=== PATIENT | male | born 1985 | race Caucasian/White ===

== ENCOUNTER 2020-12-13 13:48 | Emergency (ER) | payer BC, SELFPAY ==
[2020-12-13 13:56] VITALS: BP 141/84; PULSE 87; RESP 16; TEMP 37; O2SAT 100
--- NOTE | 2020-12-13 14:18 | ED.HA ---
HPI - Headache General Chief Complaint: Headache Stated Complaint: headache needs work note Source: patient and RN notes reviewed Mode of arrival: ambulatory Limitations: no limitations History of Present Illness HPI Narrative: 35 year old male who presents to [facility] care with stated complaints of having migraine headache on Wednesday and Wednesday, gone yesterday, having to call off of work and he states that he needs a note to return to work. Patient states that he gets headaches/migraines usually twice a year with weather changes. Patient states that he has no headache pain at this time, denies any other ill symptoms, no nausea, neuro deficit, or any photophobia. Patient states that he took Ibuprofen and stayed in quiet dark environment and headache finally resolved yesterday. 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 MD elicited complaint: headache Pertinent past history: migraines Onset description: gradually Location: temporal and other (to back of head) Quality & Timing: throbbing, steady and similar to previous headaches Exacerbating factors: exertion, movement of head/neck, light and noise Relieving factors: NSAIDs, dark room and other (rest) Associated symptoms: photophobia, sensitivity to sound and other (temporal pain radiating to back of head) Treatments prior to arrival: ibuprofen (patient is symptom free at this time) Related Data Home Medications Medication Instructions Recorded Confirmed No Home Medications 12/13/20 12/13/20 Allergies Allergy/AdvReac Type Severity Reaction Status Date / Time No Known Drug Allergies Allergy Unknown Unknown Verified 12/13/20 14:07 Review of Systems Review of Systems: Narrative: CONSTITUTIONAL: Denies fever, chills, or sweats. EYES: Denies visual changes, redness, or discharge,did have photophobia with headache ENT: Denies rhinorrhea, congestion, sore throat, or otalgia. CARDIOVASCULAR: Denies chest pain, palpitations, or edema. RESPIRATORY: Denies cough or dyspnea. GASTROINTESTINAL: Denies abdominal pain, nausea, vomiting, or diarrhea. GENITOURINARY: Denies dysuria or hematuria. SKIN: Denies rash or itching. MUSCULOSKELETAL: Denies back pain, joint pain, or myalgia. NEUROLOGIC: Denies headache at this time,no numbness, or weakness.Headache started Wednesday evening and finally resolved on . PSYCHIATRIC: Denies anxiety or depression. All systems reviewed & are unremarkable except as noted in HPI and below PMFSH Past Medical History Medical History (Updated 12/16/20 @ 08:58 by Liset Chandler NP) Ankle sprain Migraines, neuralgic Surgical History Surgical History (Updated 12/16/20 @ 08:53 by Liset Chandler NP) No history of previous surgery Family History Family History (Updated 12/16/20 @ 08:54 by Liset Chandler NP) Other No significant family history Social History Social History (Updated 12/16/20 @ 08:53 by Liset Chandler NP) Smoking status: Never smoker Alcohol intake: current Alcohol use details: social Substance use: never Living arrangements: with family Gender identity (if verbalized by the patient): Male Comments At time of signature, agree with nursing past medical, surgical, social and family history. There is no relevant family history pertinent to the presenting complaint Exam Narrative: Exam Narrative: GENERAL: Well-appearing, well-nourished, and in no acute distress. HEAD: Normocephalic, atraumatic. EYES: PERRLA and EOMI.no nystagmus noted ENT: Nares clear, no rhinorrhea or epistaxis. Mucous membranes moist.TM's normal with good light reflex, throat pink with no swelling or pain, no tonsil enlargement NECK: Supple.no lymphadenopathy CHEST: Clear to auscultation. No respiratory distress.SAO2 100% on room air HEART: Regular rate and rhythm. No murmur heard. Normal peripheral pulses. ABDOMEN: Soft, nontender, nondistended, normal active bowel sounds. EXTREMITIES: Normal range of motion. No edema. SKIN: Warm,
== END 2020-12-13 14:45 | disposition home or self-care (01) ==
PROVIDERS: Emergency Provider Registered Nurse; PCP Internal Medicine
DX: G43.909 Migraine, unspecified, not intractable, without status migrainosus (principal)
CPT/HCPCS: 99213; G0463

== ENCOUNTER 2023-10-13 14:16 | Emergency (ER) | payer OTHER, SELFPAY ==
[2023-10-13 14:23] VITALS: BP 146/98; PULSE 101; RESP 16; TEMP 37.1; O2SAT 97
--- NOTE | 2023-10-13 15:10 | ED.URI ---
HPI - URI/Sore Throat General Chief Complaint: Upper Respiratory Infection Stated Complaint: Cough Time Seen by Provider: 10/13/23 15:10 Source: patient, RN notes reviewed and old records reviewed Mode of arrival: ambulatory Limitations: no limitations History of Present Illness HPI Narrative: 38-year-old male who presents to [facility] with complaints dry cough which seems worse when he lays down for 1 week. He states that he has noted cough worse at night when supine and he states that he has noted a crackle when he breaths out at time. 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 Patient reports that he has taken some Mucinex for his symptoms MD elicited complaint: cough Onset (ago): week(s) (1) Consistency: progressively worsening Pain scale (0-10): 3 Description of mucous: clear and other (white ) Able to tolerate fluids by mouth: Yes Treatments prior to arrival: other (Mucinex) Related Data Allergies Allergy/AdvReac Type Severity Reaction Status Date / Time No Known Drug Allergies Allergy Unknown Unknown Verified 10/13/23 14:30 Review of Systems Review of Systems: CONSTITUTIONAL: Denies malaise, chills, sweats, or fever. EYES: Denies visual changes, redness, or discharge. ENT: Reports rhinorrhea, congestion, no sinus pain, no otalgia and no sore throat. CARDIOVASCULAR: Denies chest pain, palpitations, or edema. RESPIRATORY: Reports cough.? Denies dyspnea.worsw when supine GASTROINTESTINAL: Denies abdominal pain, nausea, vomiting, diarrhea SKIN: Denies rash or itching. MUSCULOSKELETAL:Reports myalgia. NEUROLOGIC: Denies headache. All systems reviewed & are unremarkable except as noted in HPI and below PMFSH Past Medical History Medical History (Updated 10/16/23 @ 09:49 by Liset Chandler NP) Ankle sprain History of fractured kneecap Migraines, neuralgic Surgical History Surgical History (Updated 12/16/20 @ 08:53 by Liset Chandler NP) No history of previous surgery Family History Family History (Updated 12/16/20 @ 08:54 by Liset Chandler NP) Other No significant family history Social History Social History (Updated 12/16/20 @ 08:53 by Liset Chandler NP) Smoking status: Never smoker Alcohol intake: current Alcohol use details: social Substance use: never Living arrangements: with family Gender identity (if verbalized by the patient): Male Comments At time of signature, agree with nursing past medical, surgical, social and family history. There is no relevant family history pertinent to the presenting complaint Exam Narrative: GENERAL: Well-appearing, well-nourished, and in no acute distress. HEAD: Normocephalic EYES: PERRLA, conjunctivae clear ENT: Nares clear, turbinates edematous and erythematous, clear discharge. Mucous membranes moist. TM pearly meeks with dull light reflex bilaterally; no tragal tenderness. Oropharynx erythematous without lesions. Tonsils not enlarged and without exudate, no drooling, no hoarseness, no trismus, uvula midline.post nasal discharge NECK: Supple. No lymphadenopathy CHEST: Clear to auscultation, breath sounds equal. No wheezing, rhonchi, rales, or stridor. No respiratory distress, speaks in full sentences.coughSAO2 97% on room air HEART: Regular rate and rhythm. No murmur heard. SKIN: Warm, dry, no rash. NEURO: Alert and oriented x3. PSYCH: Normal mood and affect Course Course Emergency Course: Patient is aware of diagnosis, understands and agrees to treatment plan.? Anticipatory guidance given.? Patient agrees to follow-up as directed and is aware of reasons to seek care at the emergency department. Portions of this record may have been created with voice recognition software Level of Care: Express Care Visit Vital Signs Vital signs: Vital Signs Temperature 37.1 C 10/13/23 14:23 Pulse Rate 101 H 10/13/23 14:23 Respir
== END 2023-10-13 15:38 | disposition home or self-care (01) ==
PROVIDERS: Emergency Provider Registered Nurse
DX: J06.9 Acute upper respiratory infection, unspecified (principal)
CPT/HCPCS: 99213; G0463

== ENCOUNTER 2025-09-05 16:27 | Emergency (ER) | payer OTHER, SELFPAY ==
--- NOTE | ~2025-09-05 | XR_ITS ---
XR abdomen/kub 1V 09/05/2025 16:45 INDICATION: Left flank pain TECHNIQUE: KUB COMPARISON: None FINDINGS: Bowel gas pattern is normal. There is no evidence of free air, mass, organomegaly, ascites or obstruction. Punctate right renal stone in the lower pole. Left kidney obscured by bowel content. The bones appear intact. IMPRESSION: 1: Right nephrolithiasis.. 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
[2025-09-05 16:31] VITALS: BP 151/83; PULSE 77; RESP 20; TEMP 36.8; O2SAT 100
--- NOTE | 2025-09-05 16:36 | ED.ABDPAIN ---
HPI - Abdominal Pain General Chief Complaint: Abdominal Pain Stated Complaint: left flank back to front pain Time Seen by Provider: 09/05/25 16:50 Mode of arrival: ambulatory Limitations: no limitations History of Present Illness HPI narrative: 39-year-old male presents with concern for acute onset of left flank pain that wraps around to his left abdomen. He reports the pain woke him up from sleep around 230 this afternoon. He reports it is making him feel sweaty, he feels like he cannot sit still any feels nauseated. He denies any vomiting. He denies any history of similar symptoms. He reports the pain is somewhat constant but an absence lows in severity. He reports lying down makes it worse. MD elicited complaint: flank pain Related Data Home Medications ?Medication ?Instructions ?Recorded ?Confirmed ?Last Taken ?Type Testosterone 09/05/25 Unknown History anastrozole 1 mg tablet mg 09/05/25 Unknown History Allergies Allergy/AdvReac Type Severity Reaction Status Date / Time No Known Drug Allergies Allergy Unknown Unknown Verified 09/05/25 16:34 Review of Systems Review of Systems: CONSTITUTIONAL: Denies malaise, chills, or fever. Reports sweats EYES: Denies visual changes, redness, or discharge. CARDIOVASCULAR: Denies chest pain, palpitations, or edema. GASTROINTESTINAL: Reports left flank pain that radiates to the left abdomen, reports nausea. Denies vomiting, diarrhea, bloody, or mucous stools. GENITOURINARY: Denies dysuria, frequency, urgency, or hematuria. MUSCULOSKELETAL: Denies myalgia. Reports flank pain NEUROLOGIC: Denies numbness, weakness, or headache. PSYCHIATRIC: Denies anxiety or depression. All systems reviewed & are unremarkable except as noted in HPI and below [facility] Past Medical History Medical History (Updated 09/05/25 @ 16:58 by Nery Brooks APRN) History of fractured kneecap Ankle sprain Migraines, neuralgic Surgical History Surgical History (Updated 12/16/20 @ 08:53 by Liset Chandler APRN) No history of previous surgery Family History Family History (Updated 12/16/20 @ 08:54 by Liset Chandler APRN) Other No significant family history Social History Social History (Updated 12/16/20 @ 08:53 by Liset Chandler APRN) Alcohol intake: current Alcohol use details: social Substance use: never Living arrangements: with family Gender identity (if verbalized by the patient): Male Comments At time of signature, agree with nursing past medical, surgical, social and family history. There is no relevant family history pertinent to the presenting complaint Exam Narrative: GENERAL: Nontoxic-appearing, well-nourished, and in no acute distress but appears uncomfortable. HEAD: Normocephalic, atraumatic. EYES: PERRLA ENT: Nares clear. Mucous membranes moist. NECK: Supple. CHEST: No respiratory distress. Speaks in full sentences. HEART: Regular rate and rhythm. ABDOMEN: Soft, nontender left CVA tenderness SKIN: Warm, dry, no visible rash. NEURO: Alert and oriented x3. PSYCH: Normal mood and affect Course Course Emergency Course: Patient is aware of diagnosis, understands and agrees to treatment plan. Anticipatory guidance given. Patient agrees to follow-up as directed and is aware of reasons to seek care at the emergency department. Portions of this record may have been created with voice recognition software Level of Care: Express Care Visit Vital Signs Vital signs: Vital Signs Temperature 98.2 F 09/05/25 16:31 Pulse Rate 77 09/05/25 16:31 Respiratory Rate 20 09/05/25 16:31 Blood Pressure 151/83 H 09/05/25 16:31 Pulse Oximetry 100 09/05/25 16:31 Oxygen Delivery Room Air 09/05/25 16:31 Temperature 98.2 F 09/05/25 16:31 Pulse Rate 77 09/05/25 16:31 Respiratory Rate 20 09/05/25 16:31 Blood Pressure 151/83 H 09/05/25 16:31 Pulse Oximetry 100 09/05/25 16:31 Oxygen Delivery Room Air 09/05/25 16:31 Reviewed. MDM - Abdominal Pain MDM Narrative Medical decision making narrative: I evaluated this patient in the express care. History is obtained from patient who is an independent historian and physical exam was performed.? Available medical records were reviewed. ? Exam findings and relevant testing show no acute concerns or changes; patient is non-toxic appearing and is in no distress. ? Differential diagnosis and treatment plan were discussed with the patient. Discussed treating presumptively for kidney stone based on patient's symptoms, UA, and a right stone visible on x-ray, left kidney is not visible due to bowel contents. Also gave patient option of going to the emergency room for further evaluation, patient would prefer to go home with treatment for presumptive kidney stone, he understands that he may have to go to the emergency room if symptoms worsen or do not improve. Patient agrees with discussion and after shared medical decision making agrees with plan of care. All questions were answered to the patient's satisfaction. Patient is appropriate for outpatient treatment and follow-up. Differential Diagnosis Differential diagnosis: Likely abdominal pain, acute appendicitis, calculus of kidney, constipation, diverticulitis and pancreatitis Critical Care Time Critical Care Time Critical Care Time: No Discharge Plan Discharge Clinical Impression: Left flank pain Patient Disposition: Home Condition: Stable Instructions: Kidney Stones (ED), How to Strain Your Urine (ED) Additional Instructions: Take medication as prescribed, take pain medicine as needed, take Zofran as needed for nausea. Read the instructions on how to strain your urine, start straining your urine right away. If your symptoms worsen or do not improve please go to the emergency room right away. Please follow-up with urology for further evaluation particularly if you are not passing the stone. Patient Language: Mongolian Prescriptions: New hydrocodone-acetaminophen 5-325 mg tablet 1 tablet PO Q6H PRN (Reason: pain) Qty: 10 0RF tamsulosin [Flomax] 0.4 mg capsule 0.4 mg PO DAILY Qty: 5 0RF ondansetron 4 mg tablet,disintegrating 4 mg PO Q8H PRN (Reason: nausea and vomiting) Qty: 10 0RF No Action anastrozole 1 mg tablet Testosterone Follow-up/Referrals: Germania Rubin MD [Physician, Urology] PHYSICIAN,ADMINISTRATIVE ASSISTANT RECEPTIONIST [Primary Care Provider, Internal Medicine] Time of Disposition: 17:02
[2025-09-05] MEDS: ONDANSETRON HCL ODT 4 MG TABLET SUBLINGUAL (16:40)
[2025-09-05 17:11] LABS: EDUAAPPEAR Clear; EDUABILI Negative (Negative); EDUABLOOD 2+ (Negative); EDUACOLOR1 Yellow; EDUAGLUCOSE Negative (Negative); EDUAKETONE 1+ (Negative); EDUALEUKO Negative (Negative); EDUANITRATE Negative (Negative); EDUAPH 8.5; EDUAPROTEIN 1+ (Negative); EDUASPGRAVITY 1.020; EDUAUROBILI 0.2
== END 2025-09-05 17:17 | disposition home or self-care (01) ==
PROVIDERS: Emergency Provider Nurse Practitioner
DX: R10.A2 Flank pain, left side (principal)
CPT/HCPCS: 74018; 81003; 99213; A9270; G0463